=== PATIENT | male | born 1945 | race Two or more races ===

== ENCOUNTER 2020-04-01 18:49 | Emergency (ER) | payer MEDICARE ==
[~2020-04-01] VITALS: Ht 170.2 cm; Wt 85.0 kg
[~2020-04-01 18:49] MED LIST: ACET325T26 PO; AMOX1TAB12 PO; ASPI81TA45 PO; ATOR-2 PO; CLOP75TA PO; LISI5TAB7 PO; METF500T17 PO; METO-93 PO; METO25TA91 PO; MIRT-34 PO; OMEP-110 PO; POLY17PO5 PO
--- NOTE | 2020-04-01 19:58 | NUR ---
Patient presents to ER from [facility] c/o CP and SOB. Patient states he has had CP for a week but was in the hospital recently. Patient is AAOx4 but is a poor historian. Contacted [facility] for more info. They stated patient came to their facility today around 1600. He was d/c today from [facility]. They were unaware why he was admitted. On his arrival at their facility, he c/o SOB stating, "I cannot breathe without oxygen." Patient SPO2 greater than 95% on RA and respirations even and unlabored. Asked staff if there was family available; they state he has a sister who he does not speak with any longer. Patient refusing labs or IV for tx. Advised patient that he may need further care but he's still refusing. Patient to be sent back to [facility] with medication. Patient advised of plan of care and agrees.
[2020-04-01] MEDS ORDERED: FUROSEMIDE 40 MG TABLET PO ONE (20:00)
[2020-04-01] MEDS ORDERED: FUROSEMIDE 40 MG TABLET ONE (20:05)
[2020-04-01 20:27] VITALS: BP 145/90
--- NOTE | 2020-04-01 20:34 | NUR ---
Called [facility] and advised them that patient is refusing further treatment and that he will be sent back to their facility. They agreed.
== END 2020-04-01 21:23 | disposition home or self-care (01) ==
LOC: ED 19:30
DX: R07.2 Precordial pain (principal); I11.0 Hypertensive heart disease with heart failure; I50.9 Heart failure, unspecified; R07.89 Other chest pain; R06.02 Shortness of breath; E78.5 Hyperlipidemia, unspecified; I44.7 Left bundle-branch block, unspecified; E11.9 Type 2 diabetes mellitus without complications
CPT/HCPCS: 71045; 93005; 99283